=== PATIENT | female | born 1955 | race Caucasian/White ===

== ENCOUNTER 2022-04-29 13:48 | Outpatient (CLI) | payer MEDICARE, BC, SELFPAY | END 2022-04-29 13:49 | disposition home or self-care (01) | LOC: WOUND 13:51 | PROVIDERS: Visit Provider Surgery | DX: S81.012A Laceration without foreign body, left knee, initial encounter (principal); W05.1XXA Fall from non-moving nonmotorized scooter, initial encounter | CPT/HCPCS: 11042; 99203 ==

== ENCOUNTER 2022-05-06 13:45 | Outpatient (CLI) | payer MEDICARE, BC, SELFPAY | END 2022-05-06 13:46 | disposition home or self-care (01) | LOC: WOUND 13:45 | PROVIDERS: Visit Provider Surgery | DX: S81.012A Laceration without foreign body, left knee, initial encounter (principal); W19.XXXA Unspecified fall, initial encounter | CPT/HCPCS: 11042 ==